=== PATIENT | male | born 2000 | race Caucasian/White ===

== ENCOUNTER 2023-01-14 17:31 | Emergency (ER) | payer BC ==
[~2023-01-14] VITALS: Ht 175.3 cm; Wt 60.8 kg
[2023-01-14] MEDS ORDERED: BUPR1FIL7 (17:39)
[2023-01-14] MEDS ORDERED: MIDAZOLAM HCL 2 MG/2 ML VIAL IV ONE (17:45)
[2023-01-14] MEDS ORDERED: IV NORMAL SALINE 1000 ML BAG IV ONE (17:45)
[2023-01-14] MEDS ORDERED: FENTANYL CITRATE 100 MCG/2 ML AMPUL IV ONE (17:45)
[2023-01-14] MEDS ORDERED: PROPOFOL 100 ML ONE (17:58)
[2023-01-14] MEDS ORDERED: PROPOFOL 1,000 MG/100 ML BOTTLE IV ONE (18:00)
[2023-01-14] MEDS ORDERED: PROPOFOL 200 MG/20 ML BOTTLE IV ONE (18:30)
--- NOTE | 2023-01-14 18:49 | NUR ---
Patient resting in bed with family at bedside, arousable to verbal stimuli, no s/s of any distress noted. O2 remains in use awaiting MD read of post procedure xray.
--- NOTE | 2023-01-14 19:09 | NUR ---
Right shoulder sling applied, endorsed to Rebbca, remains stable.
--- NOTE | 2023-01-14 19:15 | NUR ---
REPORT RECEIVED FROM ANGELINA MONGE.
[2023-01-14] MEDS ORDERED: HYDROCODONE/APAP 10-325 MG TABLET PO ONE (19:30)
--- NOTE | 2023-01-14 19:40 | NUR ---
PT VERY SLEEPY. PT VOIDED IN URINAL.
[2023-01-14] MEDS ORDERED: HYDROCODONE/APAP 10-325 MG TABLET ONE (20:15)
--- NOTE | 2023-01-14 22:00 | NUR ---
PT A,A AND O X 3 WITH RT SHOULDER PAIN 5 WITH NAD OBSERVED.Patient discharged to home in stable condition. Written and verbal after care instructions given. Patient verbalizes understanding of instructions. Stressed follow up or return to ER for worsening s/s. PT AMB OUT WITH FRIEND.
[2023-01-14 22:10] VITALS: BP 116/57; TEMP 98; O2SAT 100
== END 2023-01-14 22:00 | disposition home or self-care (01) ==
LOC: ER 17:35
DX: S43.004A Unspecified dislocation of right shoulder joint, initial encounter (principal); Z79.899 Other long term (current) drug therapy; W01.0XXA Fall on same level from slipping, tripping and stumbling without subsequent striking against object, initial encounter; Y93.89 Activity, other specified; Y92.89 Other specified places as the place of occurrence of the external cause; Y99.8 Other external cause status
CPT/HCPCS: 99285; 23650; 96360; 73030; 99152; J7040; A4663; G0500; J3490